=== PATIENT | female | born 1980 | race Caucasian/White ===

== ENCOUNTER → 2017-01-20 | Outpatient (CLI) | payer OTHER ==
[~2017-01-20] MED LIST: LRT5 PO; STEROIDS
[2017-01-20 10:37] LABS: ALT/SGPT 16 U/L (12-78); AST/SGOT 9 U/L (15-37); BLOOD UREA NITROGEN 8 mg/dl (7-18); BUN/CREATININE RATIO 10.3 (10-20); CALCIUM 8.8 mg/dl (8.5-10.1); CARBON DIOXIDE 30 mmol/L (21-32); CHLORIDE 105 mmol/L (98-107); CREATININE 0.82 mg/dl (0.60-1.20); GLUCOSE 88 mg/dl (70-99); POTASSIUM 3.8 mmol/L (3.5-5.1); SODIUM 141 mmol/L (136-145)
[2017-01-20 10:40] LABS: ALB/GLOB RATIO 1.1 (0.9-2); ALKALINE PHOSPHATASE 43 U/L (45-117); CHOLESTEROL 175 mg/dl (0-200); CHOLESTEROL/HDL RATIO 3.6; HDL CHOLESTEROL 49 mg/dl; LDL CHOLESTEROL CALCULATED 97 mg/dl; TRIGLYCERIDES 144 mg/dl (0-150); VERY LOW DENSITY LIPOPROT CALC 29 mg/dl
== END | disposition home or self-care (01) ==
LOC: C.LAB 08:17
PROVIDERS: ATTEND Nurse Practitioner Occupational Health
DX: Z00.00 Encounter for general adult medical examination without abnormal findings (principal); Z13.220 Encounter for screening for lipoid disorders

== ENCOUNTER → 2018-01-13 | Outpatient (CLI) | payer OTHER ==
[2018-01-13 09:46] LABS: ALBUMIN 3.7 gm/dl (3.4-5.0); BLOOD UREA NITROGEN 10 mg/dl (7-18); CARBON DIOXIDE 25 mmol/L (21-32); CHOLESTEROL 134 mg/dl (0-200); CREATININE 0.82 mg/dl (0.60-1.20); GLUCOSE 98 mg/dl (70-99); POTASSIUM 4.3 mmol/L (3.5-5.1); SODIUM 139 mmol/L (136-145)
[2018-01-13 09:49] LABS: ALKALINE PHOSPHATASE 45 U/L (45-117); ALT/SGPT 15 U/L (12-78); AST/SGOT 7 U/L (15-37); LDL CHOLESTEROL CALCULATED 72 mg/dl; TOTAL PROTEIN 7.2 gm/dl (6.4-8.2)
== END | disposition home or self-care (01) ==
LOC: C.LAB 07:22
PROVIDERS: ATTEND Nurse Practitioner Occupational Health
DX: Z13.220 Encounter for screening for lipoid disorders (principal)

== ENCOUNTER 2019-04-26 08:20 | Observation (INO) ==
--- NOTE | 2019-04-06 16:01 | Anesthesiology Consultation ---
Date of Service April 06, 2019 Assessment & Plan (1) Encounter for pre-operative examination: CHECK TEST AM DOS Chart Review Chart Review: Acceptable Risk for Surgery and Patient seen in Pre Admission Testing Teaching & Discussion Instructed NPO after midnight before surgery, except medications with 15 cc of water. Medication instructions provided according to the PAT guidelines. History Surgery Operation Date: 04/26/19 07:30 Proposed Procedures p Robotic Total Laparos Hysterectomy - Jamil Ortiz MD, FACOG Height/Weight Height: 5 ft 4 in Weight: 63.2 kg Allergies Allergy/AdvReac Type Severity Reaction Status Date / Time No Known Allergies Allergy Mild Verified 03/30/19 08:59 Medications Home Medications Medication Instructions Recorded Confirmed Last Taken cetirizine [Zyrtec] 10 mg PO DAILY PRN 03/30/19 03/30/19 Unknown fluticasone propionate [Flonase 1 spray INTRANASAL DAILY PRN 03/30/19 03/30/19 Unknown Allergy Relief] Past Medical History Medical History Dysmenorrhea History of palpitations None currently No known health problems Exercise / Class Metabolic Activity II 4-5 Yardwork/Stairs/Walk up hill (Denies CP or SOB with stairs) Past Surgical History Surgical History History of endometrial ablation History of wisdom tooth extraction Past Anesthesia History No Hx of Anesthesia Complications and No Family Hx of Anesthesia Complications History of PONV No Hx of PONV Social History Smoking Status: Never smoker Smoking cigarettes per day: 0 Do You Dip or Chew Tobacco: No Hx Alcohol Use: Yes alcohol intake frequency: holidays/special occasions only Alcohol Intake Frequency Comment: OCC. SOCIAL USE Hx Substance Use: No substance use type: does not use Review of Systems Pt denies any recent chest pain, shortness of breath, cough, fever or URI. +seasonal allergies +remote h/o palpitations, none x 1 year Physical Exam Vital Signs BP: 133/61 P: 81bpm SPO2: 97% RA T: 99.1 F R: 14 ENMT Mouth: no dental restorations, no chipped teeth and no loose teeth Thyromental Distance: > or= 3.5 Finger Breadths (4) Mallampati Class: I Neck normal visual inspection; neck extension not limited Respiratory normal respiratory effort Auscultation: lungs clear to auscultation bilaterally Cardiovascular Rate/Rhythm: regular rate and regular rhythm Heart Sounds: no murmur Extremities: no edema Testing Laboratory Results 04/06/19 16:04 04/06/19 16:04 Blood Type A Positive Antibody Screen NEGATIVE 03/29/19 SODIUM: 140 POTASSIUM: 4.2 CHLORIDE: 108 CO2: 27 BUN: 15 CREATININE: 0.86 GLUCOSE: 93
--- NOTE | 2019-04-06 16:03 | PAT Medication Instructions ---
Medication Instructions Date of Service April 06, 2019 Home Medications cetirizine [Zyrtec] 10 mg PO DAILY PRN fluticasone propionate [Flonase Allergy Relief] 1 spray INTRANASAL DAILY PRN DO NOT take the morning of surgery cetirizine [Zyrtec] 10 mg PO DAILY PRN Take morning of surgery OTHERWISE NOTHING TO EAT OR DRINK AFTER MIDNIGHT: fluticasone propionate [Flonase Allergy Relief] 1 spray INTRANASAL DAILY PRN (if needed) Other Notes If you have any questions please call us at [phone] or [phone] or [phone] or [phone]
[2019-04-06 16:14] LABS: Basophils # (auto) 0.02 K/uL (0-0.2); Basophils % (auto) 0.2 %; Eosinophils # (auto) 0.07 K/uL (0-0.5); Eosinophils % (auto) 0.9 %; Hematocrit (blood only) 35.9 % (37-47); Hemoglobin 12.1 g/dL (12.0-16.0); Immature Granulocytes # (auto) 0.01 K/uL (0.00-0.02); Immature Granulocytes % (auto) 0.1 %; Lymphocytes # (auto) 2.15 K/uL (1.2-3.4); Lymphocytes % (auto) 26.7 %; Mean Corpuscular Hgb Conc 33.7 g/dL (32-36); Mean Corpuscular Volume 81.4 fL (80-100); Mean Platelet Volume 10.3 fL (7.4-10.4); Monocytes # (auto) 0.45 K/uL (0.11-0.59); Monocytes % (auto) 5.6 %; Neutrophils # (auto) 5.35 K/uL (1.4-6.5); Neutrophils % (auto) 66.5 %; Platelet Count 270 K/uL (130-400); RDW Coefficient of Variation 12.9 % (11.5-14.5); RDW Standard Deviation 38.6 fL (36.4-46.3); Red Blood Count 4.41 M/uL (4.2-5.4); White Blood Count 8.05 K/uL (4.8-10.8)
[~2019-04-26 08:20] MED LIST changes: +ATROPINE SULFATE 0.1 MG/ML 10ML SYR IV PRN; +CEFAZOLIN 2000MG 2,000 MG/15 ML SYR IV SCH; +HYDROmorphone INJ 1 MG/ML SYRINGE IV PRN; +LACTATED RINGER'S 1,000 ML IV SCH; +LIDOCAINE HCL 2% 2 ML VIAL/AMP(20MG/ML) INFIL ONE; +LR 15ML/HR IV SCH; -LRT5 PO; +MIDAZOLAM HCL 1 MG/ML 2ML VIAL ONE; +ONDANSETRON INJ 2 MG/ML 2 ML VIAL IV PRN; +PROMETHAZINE HCL 12.5 MG in SODIUM CHLORIDE 0.9% 50 ML IV PRN; +PROPOFOL IV EMULSION 10 MG/ML 20 ML VIAL IV ONE; +ROCURONIUM BROMIDE 10 MG/ML 5 ML VIAL ONE; -STEROIDS; +ePHEDrine sulfate 50 MG/ML AMP IV PRN; +fentaNYL citrate 100 MCG/2 ML VIAL ONE
--- NOTE | 2019-04-26 09:32 | History & Physical Bridge Note ---
Date of Service April 26, 2019 History & Physical Bridge Note I have examined the patient, reviewed the History & Physical and in the interval since the performance of the History & Physical I have noted the following changes of clinical significance: no changes noted
[2019-04-26] MEDS ORDERED: BUPIVACAINE 0.5 % 5 MG/1 ML MPF 30ML VIAL ONE (09:49)
[2019-04-26] MEDS ORDERED: METHYLENE BLUE 0.5% 10 ML VIAL ONE ×2 (09:49→11:19)
[2019-04-26] MEDS ORDERED: DEXAMETHASONE SOD INJ 4 MG/ML VIAL ONE (10:32)
[2019-04-26] MEDS ORDERED: ONDANSETRON INJ 2 MG/ML 2 ML VIAL ONE (10:32)
[2019-04-26] MEDS ORDERED: HYDROmorphone INJ 2 MG/ML SYR/VIAL ONE (10:35)
[2019-04-26] MEDS ORDERED: TISSEEL FIBRIN SEALANT 4ML TOP ONE (11:39)
[2019-04-26] MEDS ORDERED: NEOSTIGMINE METHYLSULFATE 5 MG/5 ML SYR ONE (11:41)
[2019-04-26] MEDS ORDERED: GLYCOPYRROLATE 0.2 MG/ML VIAL ONE (11:41)
--- NOTE | 2019-04-26 12:01 | Operative Report ---
Post Operative Report Pre & Post Diagnosis Operation Date: 04/26/19 09:55 Pre-Op Diagnosis: DYSMENORRHEA menorrhagia Post-Op Diagnosis: DYSMENORRHEA menorrhagia Procedure Operation Date: 04/26/19 09:55 Actual Procedures p Robotic-assisted Total Laparoscopic Hysterectomy, bilateral salpingectomy, right oopherectomy; cystoscopy - Jamil Ortiz MD, FACOG Surgeon Jamil Ortiz MD, FACOG Field Organizer dr. connelly Estimated Blood Loss 10 Findings Consistent with Post-Op Diagnosis Specimens Uterus bilateral fallopian tubes cervix right ovary Description of Procedure Patient given a general anesthetic prepped in dorsal lithotomy position in [facility] care was taken on positioning IV antibiotics given preoperatively Salamanca catheter placed in her bladder V care placed in the uterus in the usual fashion and sewn in place. Gloves changed subumbilical incision was made with scalpel using Wallace technique we did a cutdown entering the peritoneal cavity bluntly blunt-tipped Wallace trocar then placed balloon inflated to stabilize the port CO2 gait gas used to insufflate the abdomen. Findings upper abdomen normal no sign of visceral organ injury deep Trendelenburg and applied the uterus appeared to have a somewhat enlarged left broad ligament adjacent to the uterus right ovary was somewhat enlarged as well fallopian tubes bladder flap and cul-de-sac otherwise appeared normal 2 robotic ports placed one on the right one in the left the left upper quadrant 11 mm accessory port placed blunt-tipped robot docked arm #1 was monopolar burton arm #2 bipolar [place]. Case was begun by identifying location of the ureter first in the left and the right side of follow the typical location. At this stage we then remove the lef t fallopian tube. We then coagulated the blood supply distal to the left ovary with the bipolar [place]. This was then cut with monopolar burton we skeletonized the vessels on the side develop the bladder flap identified the left uterine blood vessels coagulated these with the bipolar [place] and cut this with monopolar burton. We were well away from the left ureter exact same process was continued on the right except we decided to remove the right ovary the patient requested a bipolar was used to coagulate the ovarian artery and vein proximal to the right ovary. Once the bladder flap was fully dissected away was able to make a monopolar incision for a colpotomy incision anteriorly we completed the colpotomy uterus and right adnexa were removed through the vagina a glove and a sponge was then placed to maintain pneumoperitoneum at this stage IV methylene blue was given by anesthesia. Should be noted that bleeding was minimal at this stage. Instrument exchanges then occurred arm #1 became the Son needle rolloff truck driver arm #2 became the Cobra grasper using a 12 inch 2 oh 90-day V lock suture we then closed the cuff from left to right ensuring full-thickness 1 cm bites suture was cut so there was no tail needle removed for the excess report glove and sponge removed from the vagina seal was airtight after generous irrigation and suction 4 mL of Tisseel was applied to the pedicles Cystoscopy was performed by removing the Salamanca catheter visualized and normal dome as well as base of the bladder no stitches no defects good strong jets of urine from both left and right ureter openings cystoscope removed and new Salamanca catheter placed at this stage glove change in the ports were removed robot undocked gas allowed to escape incisions injected with 0.5% Marcaine fascia closed in the umbilical incision with 0 Vicryl and left upper quadrant with 0 Vicryl 4 oh septic or Monocryl and Dermabond applied sponge and instrument counts correct I attest to the content of the Intraoperative Record and any orders documented therein. Any exceptions are noted below.
[2019-04-26] MEDS: fentaNYL citrate 100 MCG/2 ML VIAL IV PRN ×2 (12:25→12:30)
--- NOTE | 2019-04-26 13:12 | Anesthesiology Progress Note ---
Date of Service April 26, 2019 Anesthesia Post Procedure Vital Signs Vital Signs: Temp Pulse Pulse Resp BP Pulse Ox 04/26/19 13:00 36.4 C L 61 15 108/54 L 99 04/26/19 12:50 36.4 C L 60 15 103/62 99 04/26/19 12:40 50 L 15 95/61 L 94 04/26/19 12:30 68 15 99/61 L 100 04/26/19 12:21 63 14 90/64 L 100 04/26/19 12:08 36.3 C L 54 L 12 97/45 L 100 04/26/19 08:58 37.0 C 93 H 16 129/76 100 Pain Intensity Right Lower Abdomen: Pain Intensity: 2 Abdomen: Pain Intensity: 5 Transfer of Care Handoff Completed per policy Notes Mental Status: alert / awake / arousable and participated in evaluation Patient Amnestic to Procedure: Yes Nausea / Vomiting: adequately controlled Pain: adequately controlled Airway Patency, RR, SpO2: stable & adequate BP & HR: stable & adequate Hydration State: stable & adequate Anesthetic Complications: no major complications apparent and Pt Satisfied with anesthetic care
[2019-04-26] MEDS ORDERED: CETIRIZINE HCL 10 MG TABLET PO PRN (14:28)
[2019-04-26] MEDS ORDERED: SIMETHICONE 80 MG CHEW PO PRN ×2 (14:28→16:15)
[2019-04-26] MEDS ORDERED: ACETAMINOPHEN 325 MG TAB PO PRN (14:28)
[2019-04-26] MEDS ORDERED: ZOLPIDEM TARTRATE 5 MG TAB PO PRN (14:28)
[2019-04-26] MEDS ORDERED: BISACODYL 10 MG SUPP PR PRN (14:28)
[2019-04-26] MEDS ORDERED: PROMETHAZINE HCL 25 MG in SODIUM CHLORIDE 0.9% 50 ML IV PRN (14:28)
[2019-04-26] MEDS ORDERED: OXYCODONE/ACETAMINOPHEN 5mg/325mg TAB PO PRN ×2 (14:28)
[2019-04-26] MEDS ORDERED: LACTATED RINGER'S 1,000 ML IV SCH (14:28)
[2019-04-26] MEDS ORDERED: FLUTICASONE PROPIONATE NA SPR 16 GM BTL PRN (14:28)
[2019-04-26] MEDS ORDERED: IBUPROFEN 600 MG TAB PO PRN (14:28)
[2019-04-26] MEDS ORDERED: MAGNESIUM HYDROXIDE SUSP 30 ML UDC PO PRN (14:28)
[2019-04-26] MEDS ORDERED: MEPERIDINE HCL 50 MG/ML CARP IV PRN (14:28)
[2019-04-26] MEDS ORDERED: ONDANSETRON INJ 2 MG/ML 2 ML VIAL IV PRN (14:28)
[2019-04-26] MEDS ORDERED: KETOROLAC 30 MG/ML VIAL IV PRN (14:28)
[2019-04-26] MEDS ORDERED: ONDANSETRON 4 MG TAB PO PRN (16:15)
[2019-04-26] MEDS ORDERED: DOCUSATE SODIUM 100 MG CAP PO SCH (21:00)
--- NOTE | 2019-04-28 09:07 | Discharge Summary ---
Date of Service April 28, 2019 Patient had TLH+RSO and was discharged on same day just a few hours after surgery. Ambulating well. No bleeding pain well controlled voiding well. Admission Exam (Per Admitting) Constitutional WD/WN, vitals as above Cardiovascular Extremities: + calf tenderness (none) Discharge Data Procedures Performed Operation Date: 04/26/19 09:55 Actual Procedures p Robotic-assisted Total Laparoscopic Hysterectomy, bilateral salpingectomy, right oopherectomy; - Jamil Ortiz MD, FACOG s Cystoscopy - Jamil Ortiz MD, FACOG Hospital Course (1) Dysmenorrhea: meets criteria. Instructions reviewed
== END 2019-04-26 19:00 | disposition home or self-care (01) ==
LOC: ASU 08:20 → 4N 08:20